=== PATIENT | male | born 1970 | race Caucasian/White ===

== ENCOUNTER 2022-10-11 07:15 | Day surgery (SDC) | payer BC ==
[2022-10-08 16:21] VITALS: BP 157/96
[~2022-10-11] VITALS: Ht 180.3 cm; Wt 95.5 kg
[~2022-10-11 07:15] MED LIST: DILAUDID4 MG PO; FLUOXETINE HCL20 MG PO; HYDROCODON-ACE1 EAC8 PO; LISINOPRIL-HCT1 EACH PO; LISINOPRIL10 MG PO; NALTREXONE HCL50 MG PO; OMEPRAZOLE20 M1 PO; TRAMADOL HCL50 MG PO
[2022-10-11 07:25] VITALS: BP 162/100
[2022-10-11 07:55] LABS: ALBUMIN 4.6 g/dL (3.4-5.0); ALBUMIN/GLOBULIN RATIO 1.21 (1.1-2.4); BILIRUBIN, TOTAL 0.6 ng/dL (0.2-1.0); BUN/CREATININE RATIO 16.51 (6.0-28.6); CALCIUM 10.1 mg/dL (8.5-10.1); CREATININE, SERUM 1.09 mg/dL (0.70-1.30); PROTEIN, TOTAL 8.4 g/dL (6.4-8.2)
[2022-10-11] MEDS ORDERED: TRAMADOL HCL50 MG PO (08:59)
--- NOTE | 2022-10-11 09:15 | NUR ---
10/11/22 0915 Demetria Osborne 0901 PT ARRIVED TO PACU ON RA, PT WAKES EASILY AND DENIES PAIN AND NAUSEA.
[2022-10-11 09:21] VITALS: BP 138/76
--- NOTE | 2022-10-11 09:25 | NUR ---
LE 0920: PT IS BACK TO DS FROM PACU. HE IS ALERT AND ORIENTED. NO COMPLAINTS AT THIS TIME. CALL LIGHT WITHIN REACH. WATER ON BEDSIDE TABLE.
[2022-10-11 10:34] VITALS: BP 150/102
--- NOTE | 2022-10-11 10:47 | NUR ---
LE 1030: PT IS UP OOB TO USE THE BATHROOM. HE IS ABLE TO AMBULATE HIMSELF TO AND FROM THE RESTROOM. HE IS ABLE TO VOID 300MLS OF DARK YELLOW URINE. LE 1033: PT IS EDUCATED ON HOW TO BEST DRESS HIMSELF AND TO OPEN HIS CURTAIN WHEN READY. LE 1038: PT IS GIVEN VERBAL AND WRITTEN DC INSTRUCTIONS. HE VERBALIZES UNDERSTANDING. QUESTIONS ARE ASKED AND ANSWERED. LE 1040: HE IS TAKEN TO THE LOBBY TO WAIT FOR HIS MOM, WHO WAS 30 MINUTES OUT.
--- NOTE | 2022-10-11 19:23 | EKG ---
[facility] [address] [facility] [place], [place] [address] Signed Normal sinus rhythm Normal ECG No previous ECGs available Confirmed by MAX BUI MD ([id number]) on 10/11/2022 7:22:56 PM Electronically Signed By: MAX BUI 10/11/221922 PATIENT NAME: JUANCARLOS PEREZ Electrocardiogram DATE OF : 70 PHYSICIAN: MAX BUI REPORT #: [id number] REPORT IS CONFIDENTIAL AND NOT TO BE RELEASED WITHOUT AUTHORIZATION
--- NOTE | 2022-10-14 08:23 | OR ---
[facility] [address] [place], [place] [address] Signed DATE OF OPERATION: 10/11/2022 SURGEON: Shonda Soto MD PREOPERATIVE DIAGNOSIS: Carpal tunnel syndrome, left. POSTOPERATIVE DIAGNOSIS: Carpal tunnel syndrome, left. PROCEDURE PERFORMED: Left carpal tunnel release. TEENAGE PROGRAM DIRECTOR: None. ANESTHESIA: General. TOURNIQUET TIME: 10 minutes. BRIEF HISTORY: Juancarlos is a 51-year-old gentleman with pain and numbness in his hand. Nerve conduction studies were consistent with carpal tunnel. Risks, benefits, and alternatives were discussed with him and he elected to proceed with surgery. DESCRIPTION OF PROCEDURE: Once consent was obtained, he was taken to the operating room. After adequate anesthesia, he was placed on the day surgery bed with a hand table. The arm was prepped and draped in a standard sterile fashion, exsanguinated using Esmarch bandage and tourniquet inflated to 200 mmHg. Standard volar approach through a 1.5 cm incision was taken through skin and subcutaneous tissue. The incision was deepened and the palmaris longus was identified, retracted and protected. The transverse carpal ligament was identified under loupe magnification. It was then dissected free of overlying soft tissue proximally and distally. We then released approximately a cm and distally to the distal extent under direct loupe magnification. The canal was then palpated and found to be completely released using the [place]. The wound was then copiously irrigated with normal saline, closed with 3-0 nylon and injected with 8 mL of 0.25% Marcaine. The wound was then Electronically Signed By: SHONDA SOTO MD 10/14/22 0823 PATIENT NAME: JUANCARLOS PEREZ OPERATIVE REPORT DATE OF : 70 REPORT #: [id number] PHYSICIAN: SHONDA SOTO MD PCP: TRISHA GALLEGO REPORT IS CONFIDENTIAL AND NOT TO BE RELEASED WITHOUT AUTHORIZATION [facility] [address] [place], [place] [address] Signed dressed with bacitracin, Adaptic, 4 x 8s, and gauze. He tolerated the procedure well. All sponge, needle, and instrument counts were correct. Shonda Soto MD [facility]/MODL /[id number] Copies: ~ Electronically Signed By: SHONDA SOTO MD 10/14/22 0823 PATIENT NAME: JUANCARLOS PEREZ OPERATIVE REPORT DATE OF : 70 REPORT #: [id number] PHYSICIAN: SHONDA SOTO MD PCP: TRISHA GALLGEO REPORT IS CONFIDENTIAL AND NOT TO BE RELEASED WITHOUT AUTHORIZATION
== END 2022-10-11 10:40 | disposition home or self-care (01) ==
LOC: OPS 07:15 → DS 07:15 → OPS 08:30
PROVIDERS: Nurse Anesthetist, Certified Registered; ATTEND Specialist
PROC: 01N50ZZ Release Median Nerve, Open Approach (ICD-10-PCS; principal; 2022-10-11 09:00)
DX: G56.02 Carpal tunnel syndrome, left upper limb (principal); I10 Essential (primary) hypertension
CPT/HCPCS: 36415; 80053; 93005; 93010; J0131; J0690; J1100; J1885; J2001; J2405; J2704; J3010; J7121

== ENCOUNTER 2022-11-22 06:20 | Day surgery (SDC) | payer BC ==
[2022-11-20 16:03] VITALS: BP 140/84
[~2022-11-22] VITALS: Ht 180.3 cm; Wt 97.7 kg
[2022-11-22 06:31] VITALS: BP 127/94
--- NOTE | 2022-11-22 08:18 | NUR ---
11/22/22 0818 Demetria Osborne 0812 PT ARRIVED TO PACU ON RA WITH ORAL AIRWAY IN PLACE, RESP EVEN AND UNLABORED.
[2022-11-22 08:32] VITALS: BP 119/79
--- NOTE | 2022-11-23 19:40 | OR ---
[facility] [address] [place], [place] [address] Signed DATE OF OPERATION: 11/22/2022 SURGEON: Mely Atwood MD PREOPERATIVE DIAGNOSES: 1. History of gastritis. 2. Gastroesophageal reflux disease. 3. Possible history of peptic ulcer disease. 4. Chews snuff. 5. Irritable bowel syndrome with pain. 6. Screening colonoscopy. POSTOPERATIVE DIAGNOSES: 1. Mild distal gastritis. 2. Tiny hiatal hernia. 3. GE junction at 37 cm. 4. [id number] pruritus ani. PROCEDURES: 1. EGD with CLOtest and biopsy of the antrum. 2. Colonoscopy without biopsy. ESTIMATED BLOOD LOSS: None. INDICATIONS: Alejandro is a 51-year-old gentleman, asked to see me for upper and lower endoscopy. He has had a long history of acid reflux. He likes to chew snuff on a daily basis. He thinks maybe he had ulcers in the past. Dr. Contreras helped him with upper endoscopy in 2007 at the age of 35. This was unremarkable. I had helped him in 2012 at the age of 41. This showed some very minimal gastritis. Really no obvious hiatal hernia. He also likes to drink alcohol on a daily basis. He had a barium swallow back in 2007 and that was unremarkable. He said he had Giardia back in 2000. He said those symptoms have resolved. He has had CT scans of the abdomen and pelvis and all have been negative. He did see one of our comfort station supervisor, Dr. Dale Coleman in 2009 at the age of 38. The ultrasound and HIDA scan were both negative. His CLOtest had been negative. I do not believe his GI symptoms have changed whatsoever over the years. He tells me there is no family history of colon cancer or polyps. In the office, I gave him pamphlets on both upper and lower endoscopy. We had discussed those together. He understands there is risk including, but not limited to gas bloating, crampy abdominal pain, bleeding, Electronically Signed By: MELY ATWOOD MD 11/23/221939 PATIENT NAME: ALEJANDRO PEREZ OPERATIVE REPORT DATE OF : 70 REPORT #: [id number] PHYSICIAN: MELY ATWOOD MD PCP: TRISHA GALLEGO REPORT IS CONFIDENTIAL AND NOT TO BE RELEASED WITHOUT AUTHORIZATION [facility] [address] [place] [address] Signed perforation requiring surgery, and missed diagnosis. We also discussed the need for monitored anesthesia care with propofol infusion with his daily alcohol intake and citalopram that he uses for his anxiety. He had expressed understanding and wished to proceed. PROCEDURE NOTE: Alejandro was taken into our endoscopy suite and placed in the supine semi-recumbent position. The posterior oropharynx was anesthetized with lidocaine spray. A bite block was utilized for the case. The adult gastroscope was introduced and advanced out in the third portion of the duodenum without difficulty. The duodenum and pyloric channel were unremarkable. He had very minimal inflammation in the distal portion of the stomach. We took a biopsy out of the antrum for CLOtest as well as pathologic review. There were no ulcerations. Upon retroflexion of the scope, he does not have an obvious hiatal hernia. We watched his GE junction through multiple respiratory cycles. He may have just a very tiny hiatal hernia. The scope was withdrawn up through the area of the GE junction, which was compliant without stricture. There was no gastric or esophageal varices. Very minimal irritation around the Z-line. Really no disruption to the Z-line. No Sidhu's mucosa. No distal esophagitis. His middle and upper esophagus were unremarkable. The vocal cords and arytenoids were unremarkable. After this, the gas was suctioned out and the gastroscope removed. Alejandro tolerated the upper endoscopy quite well. Alejandro was rotated into the left lateral decubitus position. He was maintained on IV propofol per our nurse supervisor bottle machines. A digital rectal exam was performed. He does have moderate pruritus ani. The skin is very pale, indurated, and he is forming ridges. 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 There were no masses. No external hemorrhoids. We did not check his prostate. The adult colonoscope was then introduced and advanced under direct visualization of the camera up into the cecum itself. Overall, his prep was good. We could easily see the appendiceal orifice and the ileocecal valve. The scope was then withdrawn and we did not see any polyps. He might have a few tiny diverticula in the sigmoid colon, but they were hard to ascertain. Once in the rectum, the scope had been retroflexed and he has very routine minimal internal hemorrhoid tissue. After this, the gas was suctioned out and the colonoscope removed. Alejandro tolerated the procedure quite well. RECOMMENDATIONS: I will see Alejandro back in my office in 7 to 14 days to review his results. He will probably be on the 10 year rotation for colonoscopy. Electronically Signed By: MELY ATWOOD MD 11/23/221939 PATIENT NAME: ALEJANDRO PEREZ OPERATIVE REPORT DATE OF : 70 REPORT #: [id number] PHYSICIAN: MELY ATWOOD MD PCP: TRISHA GALLEGO REPORT IS CONFIDENTIAL AND NOT TO BE RELEASED WITHOUT AUTHORIZATION [address] [place], [place] [address] Signed Mely Atwood MD [facility]/MODL /[id number] cc: SHAYLA Pisano MD Copies: TRISHA GALLEGO ANDREW L MD ~ Electronically Signed By: MELY ATWOOD MD 11/23/221939 PATIENT NAME: ALEJANDRO PEREZ OPERATIVE REPORT DATE OF : 70 REPORT #: [id number] PHYSICIAN: MELY ATWOOD MD PCP: TRISHA GALLEGO REPORT IS CONFIDENTIAL AND NOT TO BE RELEASED WITHOUT AUTHORIZATION
--- NOTE | 2022-11-27 15:57 | PATH ---
[facility] [address] [place], [place] [address] Signed SPECIMEN(S): A ANTRUM/ANTRAL BIOPSY SPECIMEN SOURCE: A. ANTRUM/ANTRAL BIOPSY CLINICAL HISTORY: PUD, GERD, mild gastritis, small hiatal hernia. Colon screening, pruritis ani. FINAL PATHOLOGIC DIAGNOSIS: Antral/antral biopsy: - Benign gastric type mucosa with focal slight chronic inflammation. - Negative for evidence of Helicobacter organisms on routine HE stained sections. JVR:collins MICROSCOPIC EXAMINATION: Histologic sections of all submitted blocks are examined by light microscopy. These findings, together with the gross examination, support the pathologic diagnosis. GROSS DESCRIPTION: The specimen, labeled and designated "Ricardo, R, stomach, antrum/pylorus biopsy," is received in formalin and consists of 1 carpio soft tissue fragment measuring 0.3 x 0.4 cm and is submitted entirely in (A1). MMA (under the direct supervision of a pathologist) The Gross Description was prepared using a voice recognition system. The report was reviewed for accuracy; however, sound-alike word errors, addition and/or deletions may occur. If there is any question about this report, please contact Client Services. PERFORMING LABORATORY: Technical component was performed by [facility], [address] [place] [id number] (CLIA# [id number]). Professional interpretation was performed by [facility] - [facility], [address] [place] [id number] (CLIA#: [id number]). Diagnostician: Mane Pan MD Pathologist Electronically Signed 11/27/2022 PATIENT NAME: JUANCARLOS PEREZ PATHOLOGY DATE OF : 70 REPORT #: [id number] PHYSICIAN: [facility] PCP: TRISHA GALLEGO REPORT IS CONFIDENTIAL AND NOT TO BE RELEASED WITHOUT AUTHORIZATION [address] [address] Signed Copies: ~ PATIENT NAME: JUANCARLOS PEREZ PATHOLOGY DATE OF : 70 REPORT #: [id number] PHYSICIAN: [facility] PCP: TRISHA GALLEGO REPORT IS CONFIDENTIAL AND NOT TO BE RELEASED WITHOUT AUTHORIZATION
== END 2022-11-22 08:48 | disposition home or self-care (01) ==
LOC: DS 06:20 → OPS 06:20 → DS 09:45 → OPS 09:45
PROVIDERS: ATTEND Colon & Rectal Surgery
PROC: 0DB68ZX Excision of Stomach, Via Natural or Artificial Opening Endoscopic, Diagnostic (ICD-10-PCS; principal; 2022-11-22 08:15)
PROC: 0DJD8ZZ Inspection of Lower Intestinal Tract, Via Natural or Artificial Opening Endoscopic (ICD-10-PCS; 2022-11-22 08:15)
DX: Z12.11 Encounter for screening for malignant neoplasm of colon (principal); K29.50 Unspecified chronic gastritis without bleeding; K44.9 Diaphragmatic hernia without obstruction or gangrene; K58.9 Irritable bowel syndrome, unspecified; K21.9 Gastro-esophageal reflux disease without esophagitis; K64.8 Other hemorrhoids; I10 Essential (primary) hypertension; F10.99 Alcohol use, unspecified with unspecified alcohol-induced disorder; F41.1 Generalized anxiety disorder
CPT/HCPCS: 00813; 36415; 87077; J2001; J2704; J7121

== ENCOUNTER 2025-01-10 15:02 | Emergency (ER) | payer BC ==
[~2025-01-10] VITALS: Ht 180.3 cm; Wt 100.0 kg
--- OUTSIDE RECORDS SUMMARY | ~2025-01-10 | XMS | Continuity of Care Document ---
Demographics + + + | Address | [address] | | | [place] [address] | + + + | Preferred Language | Unknown | + + + | Marital Status | Never | + + + | Yazidi Affiliation | Unknown | + + + | Race | White | + + + | Ethnic Group | Not or | + + + Author + + + | Author | [facility] | + + + | Organization | [facility] | + + + | Address | [address] | | | [place] [address] | + + + | Phone | | + + + Care Team Providers + + + + | Care Weed Thinner Name | Role | Phone | + + + + Unavailable | Unavailable | + + + + Allergies No information. Encounters No information. Functional Status No information. Immunizations No information. Medications + + + + | date | description | facility | + + + + | (no date) | NALTREXONE HCL | [facility] | | | | [facility] | + + + + | (no date) | | [facility] | | | LISINOPRIL/HYDROCHLOROTHIAZ | [facility] | | | JONNA | | + + + + | (no date) | FLUOXETINE HCL | [facility] | | | | [facility] | + + + + | (no date) | LISINOPRIL | [facility] | | | | [facility] | + + + + | (no date) | OMEPRAZOLE | [facility] | | | | [facility] | + + + + Problems No information. Procedures No information. Results/Labs No information. Social History +--------+ + + | date | description | facility | +--------+ + + Vital Signs No information."
[2025-01-10] MEDS ORDERED: PERCOCET 5-3251 EACH PO (15:17)
[2025-01-10] MEDS ORDERED: ONDANSETRON ODT4 MG PO (15:18)
[2025-01-10] MEDS ORDERED: PROPRANOLOL HCL10 MG PO (15:18)
[2025-01-10] MEDS ORDERED: MORPHINE SULFATE 4 MG/ML VIAL IV ONE ×4 (16:00→17:45)
[2025-01-10 16:06] LABS: BASOPHILS 0.3 % (0.2-1.2); EOSINOPHILS 1.1 % (0.8-7.0); LYMPHOCYTES 14.4 % (21.8-53.1); MCH 27.8 PG (25.7-32.2); MCHC 33.0 g/dL (32.3-36.5); MCV 84.4 fL (79.0-92.2); MONOCYTES 8.4 % (5.3-12.2); NEUTROPHILS 75.4 % (34.0-67.9); RBC 5.89 M/uL (4.63-6.08)
[2025-01-10 16:21] LABS: ALT (SGPT) 148 U/L (14-59); AST (SGOT) 77 U/L (15-37); GLOMERULAR FILTRATION RATE,EST 34 mL/min (>60); PROTEIN, TOTAL 7.9 g/dL (6.4-8.2); UREA NITROGEN 32 mg/dL (7-18)
[2025-01-10] MEDS ORDERED: SODIUM CHLORIDE 0.9% 1,000 ML IV PRN (16:45)
[2025-01-10] MEDS ORDERED: PIPERACILLIN/TAZOBACTAM 4.5 GM in SODIUM CHLORIDE 0.9% 100 ML IV ONE (17:30)
[2025-01-10] MEDS ORDERED: fentaNYL citrate 100 MCG/2 ML VIAL IV ONE (18:15)
[2025-01-10 18:33] VITALS: BP 145/77
== END 2025-01-10 18:35 | disposition short-term general hospital (02) ==
LOC: ED 15:02
PROVIDERS: Emergency Medicine
DX: K91.89 Other postprocedural complications and disorders of digestive system (principal); I10 Essential (primary) hypertension; Z88.5 Allergy status to narcotic agent; Z88.8 Allergy status to other drugs, medicaments and biological substances
CPT/HCPCS: 36415; 74177; 80053; 83605; 83690; 85025; 87040; 96365; 96375; 96376; 99285-25; J2270; J2405; J2543; J3010; J7030